=== PATIENT | female | born 1995 | race Caucasian/White ===

== ENCOUNTER 2019-01-27 07:53 | Emergency (ER) | payer BC, MEDICAID ==
[~2019-01-27] VITALS: Ht 170.2 cm; Wt 90.7 kg
[2019-01-27 08:06] VITALS: BP 123/69
== END 2019-01-27 08:26 | disposition home or self-care (01) ==
LOC: ER 07:53
DX: O26.892 Other specified pregnancy related conditions, second trimester (principal); Z3A.27 27 weeks gestation of pregnancy; Z02.89 Encounter for other administrative examinations